=== PATIENT | male | born 1990 | race Caucasian/White ===

== ENCOUNTER 2022-04-25 20:52 | Emergency (ER) | payer SELFPAY ==
[~2022-04-25] VITALS: Ht 170.2 cm; Wt 159.0 kg
[2022-04-25 21:15] VITALS: BP 210/104
[2022-04-25] MEDS ORDERED: KETOROLAC 30MG/ML VIAL IM STA (22:17)
== END 2022-04-25 23:26 | disposition left against medical advice (07) ==
LOC: ER 20:52
DX: M54.2 Cervicalgia (principal); M54.6 Pain in thoracic spine; I10 Essential (primary) hypertension; E11.9 Type 2 diabetes mellitus without complications; V49.49XA Driver injured in collision with other motor vehicles in traffic accident, initial encounter; Y93.89 Activity, other specified; Y92.89 Other specified places as the place of occurrence of the external cause; Y99.8 Other external cause status
CPT/HCPCS: 99283

== ENCOUNTER 2022-12-21 11:38 | Emergency (ER) | payer MEDICAID | END 2022-12-21 13:06 | disposition left against medical advice (07) | LOC: ER 11:38 | DX: Z53.21 Procedure and treatment not carried out due to patient leaving prior to being seen by health care provider (principal) ==